=== PATIENT | female | born 1990 ===

== ENCOUNTER 2021-10-20 07:34 | Inpatient (IN) ==
[2021-10-20] VITALS (40 sets, daily range): BP systolic 100–156; BP diastolic 53–101
[~2021-10-20] VITALS: Ht 162.6 cm; Wt 103.3 kg
[2021-10-20] MEDS ORDERED: ZYRTTAB8 PO (08:17)
[2021-10-20] MEDS ORDERED: BUSP-29 PO (08:17)
[2021-10-20] MEDS ORDERED: PRENTAB9 PO (08:17)
[2021-10-20 08:47] LABS: HEMATOCRIT 35.2 % (36.0-47.0); HEMOGLOBIN 12.3 g/dl (12.0-15.5); MEAN CORPUSCULAR HEMOGLOBIN 30.8 pg (27.0-33.0); MEAN CORPUSCULAR HGB CONC 34.9 g/dl (32.0-36.5); MEAN CORPUSCULAR VOLUME 88.2 fl (80.0-96.0); PLATELET COUNT, AUTOMATED 278 10^3/uL (150-450); RED BLOOD COUNT 3.99 10^6/uL (4.00-5.40); WHITE BLOOD COUNT 11.8 10^3/uL (4.0-10.0)
[2021-10-20] MEDS ORDERED: LIDOCAINE 1% MDV 20ML VIAL INFIL PRN (10:30)
[2021-10-20] MEDS ORDERED: miSOPROStol 25MCG 1/4 TABLET PO SCH (10:30)
[2021-10-20] MEDS ORDERED: OXYTOCIN DRIP 30 UNITS in IV 1 EA IV PRN ×4 (10:30)
[2021-10-20] MEDS ORDERED: OXYTOCIN INJ 10 UNITS/ML VIAL (J2590) IV PRN (10:30)
[2021-10-20] MEDS ORDERED: HOME MED LIST COMPLETE! XX SCH (10:45)
[2021-10-20] MEDS ORDERED: OXYTOCIN DRIP 30 UNITS in IV 1 EA IV SCH (15:15)
[2021-10-20] MEDS: LR 1,000 ML IV SCH ×2 (15:24→20:27)
[2021-10-20] MEDS ORDERED: FENTANYL 2MCG/ML ROPIVACAINE 0.2% IN 0.9% NACL 100ML IVBAG As Ordered ONE (20:53)
[2021-10-20] MEDS ORDERED: NALOXONE INJ 0.4MG/1ML VIAL (J2310 PER 1MG) IV PRN (20:55)
[2021-10-20] MEDS ORDERED: EPIDURAL/PCA KEYS XX PRN (20:55)
[2021-10-20] MEDS ORDERED: diphenhydrAMINE 50MG/ML VIAL (J1200) IV PRN (20:55)
[2021-10-20] MEDS ORDERED: LR 500 ML IV PRN (20:55)
[2021-10-20] MEDS ORDERED: ONDANSETRON 4MG 2ML VIAL IV PRN (20:55)
[2021-10-20] MEDS: FENTANYL/ROPIVACAINE/NACL BAG 100 ML EPIDURAL SCH (21:40)
[2021-10-20] MEDS: ePHEDrine SULFATE 25 MG/5 ML(5MG/ML) SYRINGE IVP PRN (23:13)
[2021-10-21] VITALS (51 sets, daily range): BP systolic 95–190; BP diastolic 53–108
[2021-10-21] MEDS: ePHEDrine SULFATE 25 MG/5 ML(5MG/ML) SYRINGE IVP PRN ×2 (02:23→02:27)
[2021-10-21] MEDS: LR 1,000 ML IV SCH ×3 (02:27→17:25)
[2021-10-21] MEDS ORDERED: LR 500 ML IV ONE (02:45)
[2021-10-21] MEDS: FENTANYL/ROPIVACAINE/NACL BAG 100 ML EPIDURAL SCH (04:54)
[2021-10-21] MEDS ORDERED: OXYTOCIN INJ 10 UNITS/ML VIAL (J2590) As Ordered ONE ×2 (07:40→09:06)
[2021-10-21] MEDS ORDERED: dexameTHASONE 4 MG/ML 1ML VIAL (J1100 PER 1MG) As Ordered ONE (07:40)
[2021-10-21] MEDS ORDERED: KETOROLAC 60MG 2ML VIAL As Ordered ONE (07:40)
[2021-10-21] MEDS ORDERED: fentaNYL 100 MCG/2 ML INJECTION As Ordered ONE (07:40)
[2021-10-21] MEDS ORDERED: ONDANSETRON 4MG 2ML VIAL As Ordered ONE (07:40)
[2021-10-21] MEDS ORDERED: MORPHINE PRES-FREE INJ 10 MG/10 ML VIAL As Ordered ONE (07:42)
[2021-10-21] MEDS: BICITRA 30ML SOLN UDC PO ONE ×2 (07:50→08:02)
[2021-10-21] MEDS ORDERED: AZITHROMYCIN INJ 500 MG, VIAL MATE ADAPTER 1 EACH in NS 250 ML IV ONE (07:50)
[2021-10-21] MEDS ORDERED: ceFAZolin SOD 2 GM in IV 1 EA IV ONE (07:50)
[2021-10-21] MEDS ORDERED: AZITHROMYCIN INJ 500MG VIAL As Ordered ONE (07:51)
[2021-10-21] MEDS ORDERED: ceFAZolin 2 GM/D5W 50 ML IV BAG (J0690 PER 500MG) As Ordered ONE (07:52)
[2021-10-21] MEDS ORDERED: BICITRA 30ML SOLN UDC As Ordered ONE (07:52)
[2021-10-21] MEDS ORDERED: busPIRone 10 MG TAB PO SCH (09:00)
[2021-10-21 09:01] LABS: CORD GAS ABE V -8.1; CORD GAS HCO3 V 18.1 MEQ/L; CORD GAS O2 SAT V 84.3 %; CORD GAS PCO2 V 39.6 mmHg; CORD GAS PH V 7.278 UNITS; CORD GAS PO2 V 42.3 mmHg; CORD GAS SBC V 17.8 MEQ/L; CORD GAS TCO2 V 19.3 MEQ/L
[2021-10-21 09:04] LABS: CORD GAS O2 SAT A 46.5 %; CORD GAS PCO2 A 59.2 mmHg; CORD GAS PH A 7.125 UNITS; CORD GAS PO2 A 24.3 mmHg; CORD GAS SBC A 14.9 MEQ/L; CORD GAS TCO2 A 20.8 MEQ/L
[2021-10-21] MEDS ORDERED: PROMETHAZINE 25 MG TAB PO PRN (09:25)
[2021-10-21] MEDS ORDERED: RHOGAM 300 MCG (1500 IU) INJ (J2790) IM SCH (09:25)
[2021-10-21] MEDS ORDERED: ONDANSETRON 4MG 2ML VIAL IV PRN (09:25)
[2021-10-21] MEDS ORDERED: DOCUSATE SODIUM 100MG CAPSULE PO PRN (09:25)
[2021-10-21] MEDS ORDERED: DIBUCAINE 1% OINTMENT 30GM TOP PRN (09:25)
[2021-10-21] MEDS ORDERED: OXYTOCIN DRIP 30 UNITS in IV 1 EA IV SCH (09:25)
[2021-10-21] MEDS: IBUPROFEN 800 MG TAB PO SCH ×2 (10:32→18:18)
[2021-10-21] MEDS: ACETAMINOPHEN 500 MG TAB PO SCH ×3 (10:33→21:55)
[2021-10-21] MEDS: PRENATAL VITAMINS CHEWABLE TABLET PO SCH (10:33)
[2021-10-21] MEDS: CETIRIZINE (ZyrTEC) 10 MG TAB PO SCH (10:46)
[2021-10-21] MEDS: busPIRone 5 MG TAB PO SCH ×2 (10:50→21:55)
[2021-10-22] MEDS: IBUPROFEN 800 MG TAB PO SCH ×2 (02:37→10:37)
[2021-10-22] MEDS: ACETAMINOPHEN 500 MG TAB PO SCH ×3 (04:53→15:12)
[2021-10-22] MEDS ORDERED: ACET-683 PO (05:52)
[2021-10-22] MEDS ORDERED: COLA100C5 PO (05:52)
[2021-10-22] MEDS ORDERED: IBUP80TA PO (05:52)
[2021-10-22 06:00] VITALS: BP 119/58
[2021-10-22 06:55] LABS: HEMATOCRIT 28.3 % (36.0-47.0); MEAN CORPUSCULAR HEMOGLOBIN 30.9 pg (27.0-33.0); MEAN CORPUSCULAR HGB CONC 34.6 g/dl (32.0-36.5); MEAN CORPUSCULAR VOLUME 89.3 fl (80.0-96.0); PLATELET COUNT, AUTOMATED 231 10^3/uL (150-450); RED BLOOD COUNT 3.17 10^6/uL (4.00-5.40); WHITE BLOOD COUNT 16.3 10^3/uL (4.0-10.0)
[2021-10-22 07:03] LABS: HEMOGLOBIN 9.8 g/dl (12.0-15.5)
[2021-10-22] MEDS: busPIRone 5 MG TAB PO SCH (08:34)
[2021-10-22] MEDS: PRENATAL VITAMINS CHEWABLE TABLET PO SCH (08:34)
[2021-10-22] MEDS: CETIRIZINE (ZyrTEC) 10 MG TAB PO SCH (08:34)
[2021-10-22] MEDS ORDERED: PRENATAL VITAMINS CHEWABLE TABLET PO SCH (09:00)
[2021-10-23] MEDS ORDERED: MEASLES,MUMPS,RUBELLA VACCINE INJ (MMR-II) (90707) SC.IMMUN ONE (09:00)
== END 2021-10-22 17:50 | disposition home or self-care (01) | DRG 807 ==
LOC: M LDI 07:34 → M OBS 10-21 11:54
PROVIDERS: ADMIT Obstetrics & Gynecology; ATTEND Obstetrics & Gynecology
PROC: 3E0P7VZ Introduction of Hormone into Female Reproductive, Via Natural or Artificial Opening (ICD-10-PCS; 2021-10-20)
PROC: 10E0XZZ Delivery of Products of Conception, External Approach (ICD-10-PCS; principal; 2021-10-21)
PROC: 0KQM0ZZ Repair Perineum Muscle, Open Approach (ICD-10-PCS; 2021-10-21)
DX: O70.1 Second degree perineal laceration during delivery (principal); Z37.0 Single live birth; Z3A.39 39 weeks gestation of pregnancy; O69.82X0 Labor and delivery complicated by other cord entanglement, without compression, not applicable or unspecified